=== PATIENT | female | born 1940 | race Caucasian/White ===

== ENCOUNTER 2017-02-20 12:46 | Emergency (ER) | payer MEDICARE, OTHER ==
--- NOTE | 2017-03-14 15:33 | EKG ---
Test Reason : Blood Pressure : / mmHG Vent. Rate : 061 BPM Atrial Rate : 061 BPM P-R Int : 154 ms QRS Dur : 076 ms QT Int : 420 ms P-R-T Axes : 052 012 069 degrees QTc Int : 422 ms Normal sinus rhythm Normal ECG Confirmed by UMER BURROUGHS D.O. ([id number]), film or videotape editor LATHA RIVERA ([id number] on 03/14/2017 3:32:59 PM Referred By: Confirmed By:UMER BURROUGHS D.O.
== END 2017-02-20 14:29 | disposition home or self-care (01) ==
LOC: ERS 12:46
DX: I10 Essential (primary) hypertension (principal); Z86.73 Personal history of transient ischemic attack (TIA), and cerebral infarction without residual deficits; F03.90 Unspecified dementia, unspecified severity, without behavioral disturbance, psychotic disturbance, mood disturbance, and anxiety; I25.10 Atherosclerotic heart disease of native coronary artery without angina pectoris
CPT/HCPCS: 93005

== ENCOUNTER 2018-05-21 14:56 | Emergency (ER) | payer MEDICARE, OTHER ==
[2018-05-21 17:35] LABS: #Basophils 0.1 thou/uL (0.0-0.2); #Eosinphils 0.1 thou/uL (0.0-0.7); #Lymphocytes 1.4 thou/uL (1.20-3.40); #Monocytes 0.7 thou/uL (0.11-0.59); #Neutrophils 6.4 thou/uL (1.40-6.50); %Basophils 0.7 % (0.0-1.0); %Eosinophils 1.2 % (0.0-10.0); %Lymphocytes 16.4 % (21.0-51.0); %Monocytes 8.2 % (0.0-10.0); %Neutrophils 73.6 % (42.0-75.0); Hemoglobin 13.6 g/dL (12.0-16.0); Mean Corpuscular HGB CONC 32.3 g/dL (32.0-36.0); Mean Corpuscular Hemoglobin 32.5 pg (27.0-31.0); Mean Platelet Volume 5.9 fL (7.4-10.4); Platelet Count 324 thou/uL (130-400); RBC Distribution Width 12.7 % (11.5-14.5); Red Blood Cell (RBC) Count 4.19 mill/uL (4.20-5.40); White Blood Cell (WBC) Count 8.8 thou/uL (4.8-10.8)
[2018-05-21 17:56] LABS: ALT (SGPT) 23 U/L (8-55); AST (SGOT) 30 U/L (5-34); Albumin 3.3 g/dL (3.4-4.8); Alkaline Phosphatase 64 U/L (40-150); Anion Gap 13 mmol/L (10-20); BUN (Urea Nitrogen) 23 mg/dL (9.8-20.1); Bilirubin, Total 0.2 mg/dL (0.2-1.2); Calc. Creatinine Clearance 0 mL/min (70-130); Calcium 9.7 mg/dL (7.8-10.44); Carbon Dioxide 25 mmol/L (23-31); Chloride 104 mmol/L (98-107); Estimated GFR-MDRD 67; Glucose 110 mg/dL (83-110); Potassium 4.3 mmol/L (3.5-5.1); Protein, Total 6.3 g/dL (6.0-8.3); Sodium 138 mmol/L (136-145)
== END 2018-05-21 19:43 | disposition home or self-care (01) ==
LOC: ERS 14:56
DX: L89.139 Pressure ulcer of right lower back, unspecified stage (principal); I10 Essential (primary) hypertension; I25.10 Atherosclerotic heart disease of native coronary artery without angina pectoris; Z86.73 Personal history of transient ischemic attack (TIA), and cerebral infarction without residual deficits; Z79.82 Long term (current) use of aspirin; Z79.899 Other long term (current) drug therapy
CPT/HCPCS: 36415; 80053; 85025; 99283

== ENCOUNTER 2020-04-28 12:18 | Inpatient (IN) | payer MEDICARE, OTHER ==
[2020-04-28 12:45] LABS: #Basophils 0.1 thou/uL (0.0-0.2); #Lymphocytes 1.6 thou/uL (1.20-3.40); #Monocytes 0.5 thou/uL (0.11-0.59); #Neutrophils 10.3 thou/uL (1.40-6.50); %Basophils 0.5 % (0.0-1.0); %Eosinophils 0.1 % (0.0-10.0); %Monocytes 4.3 % (0.0-10.0); %Neutrophils 82.1 % (42.0-75.0); Mean Corpuscular HGB CONC 32.3 g/dL (32.0-36.0); Mean Corpuscular Hemoglobin 30.8 pg (27.0-31.0); Mean Corpuscular Volume 95.3 fL (78.0-98.0); Mean Platelet Volume 7.1 fL (7.4-10.4); Platelet Count 254 thou/uL (130-400); RBC Distribution Width 12.9 % (11.5-14.5); Red Blood Cell (RBC) Count 5.52 mill/uL (4.20-5.40); White Blood Cell (WBC) Count 12.6 thou/uL (4.8-10.8)
[2020-04-28] MEDS ORDERED: Cefepime 2 GM VIAL ONE (12:53)
[2020-04-28] MEDS ORDERED: Acetaminophen 650 MG Suppository ONE (12:53)
[2020-04-28] MEDS ORDERED: Vancomycin 1 GM/200 ML BAG ONE (12:53)
[2020-04-28 13:07] LABS: Bacteria/HPF 1+ HPF (None Seen); Bilirubin Negative (Negative); Blood, Urine Trace (Negative); Clarity Clear (Clear); Glucose, Urine (Dipstick) Normal (Negative); Ketone, Urine Negative (Negative); Leukocyte Negative Leu/uL (Negative); Nitrite Negative (Negative); Protein, Urine (Dipstick) 70 mg/dL (Neg-Trace); Specific Gravity, Urine 1.023 (1.002-1.036); Squamous Epithelial 0-3 HPF (0-3); Urobilinogen Normal mg/dL (Less than 2); pH, Urine 5.5 (5.0-9.0)
[2020-04-28 13:08] LABS: ALT (SGPT) 35 U/L (8-55); AST (SGOT) 61 U/L (5-34); Albumin 3.4 g/dL (3.4-4.8); Alkaline Phosphatase 107 U/L (40-110); Anion Gap 19 mmol/L (10-20); BUN (Urea Nitrogen) 26 mg/dL (9.8-20.1); Bilirubin, Total 0.7 mg/dL (0.2-1.2); Calc. Creatinine Clearance 0 mL/min (70-130); Calcium 9.6 mg/dL (7.8-10.44); Carbon Dioxide 22 mmol/L (23-31); Chloride 108 mmol/L (98-107); Globulin 4.4 g/dL (2.4-3.5); Glucose 147 mg/dL (83-110); Potassium 3.1 mmol/L (3.5-5.1); Protein, Total 7.8 g/dL (5.8-8.1); Sodium 146 mmol/L (136-145)
[2020-04-28 13:16] LABS: WBC/HPF 0-3 HPF (0-3)
[2020-04-28 13:37] LABS: CK (CPK) 142 U/L (29-168); Lipase 16 U/L (8-78)
[2020-04-28 13:47] LABS: SARS-CoV-2 NAA Rapid Test DETECTED (NotDetected)
[2020-04-28 14:04] LABS: CKMB 0.7 ng/mL (0-6.6)
[2020-04-28] MEDS ORDERED: Aspirin 300 MG Suppository ONE ×2 (14:10→14:48)
[2020-04-28] MEDS ORDERED: Dexamethasone 10 MG/ML VIAL ONE (14:10)
[2020-04-28 15:47] LABS: Lactic Acid 0.4 mmol/L (0.5-2.2)
[2020-04-28] MEDS ORDERED: Acetaminophen 325 MG TAB PO PRN (16:34)
[2020-04-28] MEDS ORDERED: Bisacodyl 10 MG SUPP PR PRN (16:34)
[2020-04-28] MEDS ORDERED: Ondansetron PF 4 MG/2 ML Vial IVP PRN (16:34)
[2020-04-28] MEDS ORDERED: Sodium Chloride 0.9% 1,000 ML IV SCH (16:45)
[2020-04-28] MEDS ORDERED: Bacteriostatic Water 30 ML VIAL FS PRN (17:30)
[2020-04-28 17:46] LABS: Hemoglobin 14.7 g/dL (12.0-16.0); Mean Corpuscular HGB CONC 32.7 g/dL (32.0-36.0); Mean Corpuscular Hemoglobin 31.3 pg (27.0-31.0); Mean Corpuscular Volume 95.7 fL (78.0-98.0); Mean Platelet Volume 7.2 fL (7.4-10.4); Platelet Count 200 thou/uL (130-400); RBC Distribution Width 12.9 % (11.5-14.5); Red Blood Cell (RBC) Count 4.69 mill/uL (4.20-5.40); White Blood Cell (WBC) Count 10.2 thou/uL (4.8-10.8)
[2020-04-28 17:56] LABS: ALT (SGPT) 33 U/L (8-55); AST (SGOT) 61 U/L (5-34); Albumin 3.1 g/dL (3.4-4.8); Alkaline Phosphatase 94 U/L (40-110); Anion Gap 15 mmol/L (10-20); BUN (Urea Nitrogen) 26 mg/dL (9.8-20.1); Bilirubin, Total 0.5 mg/dL (0.2-1.2); Calc. Creatinine Clearance 0 mL/min (70-130); Calcium 8.5 mg/dL (7.8-10.44); Carbon Dioxide 22 mmol/L (23-31); Chloride 110 mmol/L (98-107); Globulin 3.4 g/dL (2.4-3.5); Glucose 202 mg/dL (83-110); Protein, Total 6.5 g/dL (5.8-8.1); Sodium 144 mmol/L (136-145)
[2020-04-28] MEDS ORDERED: methylPREDNISolone Sod Succ/PF 125 MG/2 ML VIAL IVP SCH (18:00)
[2020-04-28 18:07] LABS: Band 7 % (5-11); Lymphocytes 8 % (21-51); MDiff Complete? YES; Monocytes 4 % (0-10); Neutrophil 81 % (42-75); Platelet Morphology Comment Appears Adequate; RBC Morphology Normal
[2020-04-28 20:36] LABS: Lactic Acid 2.4 mmol/L (0.5-2.2)
[2020-04-28] MEDS ORDERED: methylPREDNISolone Sod Succ 40 MG VIAL IVP SCH (21:00)
[2020-04-28] MEDS ORDERED: Cefepime 2 GM in Sodium Chloride 0.9% 100 ML IVPB SCH (22:00)
[2020-04-28 22:24] LABS: Critical Call Chem Troponin I RESULT DECREASING; Troponin I 0.612 ng/mL (< 0.028)
[2020-04-28 23:13] VITALS: BMI 17.0
[2020-04-29] MEDS ORDERED: Vancomycin HCl 500 GM in Sodium Chloride 0.9% 250 ML 300 ML IVPB SCH
[2020-04-29] MEDS ORDERED: Mineral Oil ENEMA PR SCH (01:00)
[2020-04-29] MEDS: methylPREDNISolone Sod Succ/PF 125 MG/2 ML VIAL IVP SCH ×2 (01:23→12:10)
[2020-04-29] MEDS: Famotidine/PF 20 mg/2ml Vial SLOW IVP SCH ×2 (01:24→19:56)
[2020-04-29] MEDS: 1/2 NS w/KCL 20 mEq 1,000 ML IV SCH ×3 (01:24→15:25)
[2020-04-29] MEDS: Enoxaparin Sodium 40 MG/0.4 ML SYRINGE SC SCH (08:44)
[2020-04-29] MEDS ORDERED: Enoxaparin Sodium 40 MG/0.4 ML SYRINGE SC SCH (09:00)
[2020-04-29] MEDS: Cefepime 2 GM in Sodium Chloride 0.9% 100 ML IVPB SCH (12:09)
[2020-04-29] MEDS ORDERED: Vancomycin HCl 500 MG in Sodium Chloride 0.9% 100 ML IVPB SCH (14:00)
[2020-04-29 14:30] LABS: #Lymphocytes 1.5 thou/uL (1.20-3.40); #Monocytes 0.5 thou/uL (0.11-0.59); #Neutrophils 9.8 thou/uL (1.40-6.50); %Eosinophils 0.1 % (0.0-10.0); %Lymphocytes 12.9 % (21.0-51.0); %Monocytes 4.4 % (0.0-10.0); %Neutrophils 82.6 % (42.0-75.0); Hemoglobin 13.6 g/dL (12.0-16.0); Mean Corpuscular HGB CONC 32.6 g/dL (32.0-36.0); Mean Corpuscular Hemoglobin 31.1 pg (27.0-31.0); Mean Corpuscular Volume 95.5 fL (78.0-98.0); Platelet Count 229 thou/uL (130-400); RBC Distribution Width 12.8 % (11.5-14.5); Red Blood Cell (RBC) Count 4.36 mill/uL (4.20-5.40); White Blood Cell (WBC) Count 11.9 thou/uL (4.8-10.8)
[2020-04-29 14:47] LABS: Vancomycin, Random 11.5 ug/mL (See Comment)
[2020-04-29 14:50] LABS: Anion Gap 13 mmol/L (10-20); BUN (Urea Nitrogen) 32 mg/dL (9.8-20.1); Calc. Creatinine Clearance 30 mL/min (70-130); Calcium 8.4 mg/dL (7.8-10.44); Carbon Dioxide 23 mmol/L (23-31); Chloride 111 mmol/L (98-107); Glucose 133 mg/dL (83-110); Potassium 3.7 mmol/L (3.5-5.1); Sodium 143 mmol/L (136-145)
[2020-04-29] MEDS: Vancomycin HCl 500 MG in Sodium Chloride 0.9% 100 ML IVPB SCH (15:17)
[2020-04-29] MEDS: Trospium 20 MG TAB PO SCH (19:56)
[2020-04-29] MEDS: DULoxetine 30 MG CAP PO SCH (19:56)
[2020-04-30] MEDS: 1/2 NS w/KCL 20 mEq 1,000 ML IV SCH ×3 (02:03→18:34)
[2020-04-30] MEDS: Levothyroxine Sodium 50 MCG TAB PO SCH (05:30)
[2020-04-30 05:43] LABS: Band 26 % (5-11); Hemoglobin 13.1 g/dL (12.0-16.0); Lymphocytes 1 % (21-51); MDiff Complete? YES; Mean Corpuscular HGB CONC 33.3 g/dL (32.0-36.0); Mean Corpuscular Hemoglobin 32.2 pg (27.0-31.0); Mean Corpuscular Volume 96.8 fL (78.0-98.0); Mean Platelet Volume 7.4 fL (7.4-10.4); Monocytes 6 % (0-10); Neutrophil 67 % (42-75); Platelet Count 190 thou/uL (130-400); Platelet Morphology Comment Appears Adequate; RBC Distribution Width 12.8 % (11.5-14.5); Red Blood Cell (RBC) Count 4.06 mill/uL (4.20-5.40); White Blood Cell (WBC) Count 21.3 thou/uL (4.8-10.8)
[2020-04-30 05:56] LABS: Anion Gap 14 mmol/L (10-20); BUN (Urea Nitrogen) 36 mg/dL (9.8-20.1); Calc. Creatinine Clearance 34 mL/min (70-130); Calcium 7.9 mg/dL (7.8-10.44); Carbon Dioxide 21 mmol/L (23-31); Chloride 112 mmol/L (98-107); Glucose 117 mg/dL (83-110); Potassium 3.5 mmol/L (3.5-5.1); Sodium 143 mmol/L (136-145)
[2020-04-30] MEDS: Aspirin Chewable 81 MG TAB PO SCH (09:12)
[2020-04-30] MEDS: Enoxaparin Sodium 40 MG/0.4 ML SYRINGE SC SCH (09:12)
[2020-04-30] MEDS: Dexamethasone 4 MG TAB PO SCH (09:12)
[2020-04-30] MEDS: Cholecalciferol 1,000 UNITS (25 MCG) TAB PO SCH (09:13)
[2020-04-30] MEDS: Trospium 20 MG TAB PO SCH ×2 (09:13→22:10)
[2020-04-30] MEDS: Zinc Sulfate 220 MG CAP PO SCH (09:13)
[2020-04-30] MEDS: Ascorbic Acid 500 mg Chewable Tablet PO SCH (13:24)
[2020-04-30] MEDS: Rivastigmine 4.6mg/24 Hour PATCH TOP SCH (13:43)
[2020-04-30] MEDS: Cefepime 2 GM in Sodium Chloride 0.9% 100 ML IVPB SCH (14:00)
[2020-04-30] MEDS: Vancomycin HCl 500 MG in Sodium Chloride 0.9% 100 ML IVPB SCH (18:32)
[2020-04-30] MEDS ORDERED: hydrALAZINE 20 MG/ML VIAL SLOW IVP PRN (21:06)
[2020-04-30] MEDS: DULoxetine 30 MG CAP PO SCH (22:09)
[2020-04-30] MEDS: Famotidine/PF 20 mg/2ml Vial SLOW IVP SCH (22:15)
[2020-05-01 05:19] LABS: #Lymphocytes 0.7 thou/uL (1.20-3.40); #Monocytes 0.5 thou/uL (0.11-0.59); #Neutrophils 9.5 thou/uL (1.40-6.50); %Basophils 0.1 % (0.0-1.0); %Eosinophils 0.2 % (0.0-10.0); %Lymphocytes 6.4 % (21.0-51.0); %Monocytes 5.1 % (0.0-10.0); %Neutrophils 88.3 % (42.0-75.0); Hemoglobin 11.7 g/dL (12.0-16.0); Mean Corpuscular HGB CONC 33.4 g/dL (32.0-36.0); Mean Corpuscular Hemoglobin 31.7 pg (27.0-31.0); Mean Platelet Volume 7.7 fL (7.4-10.4); Platelet Count 216 thou/uL (130-400); RBC Distribution Width 12.7 % (11.5-14.5); Red Blood Cell (RBC) Count 3.69 mill/uL (4.20-5.40); White Blood Cell (WBC) Count 10.8 thou/uL (4.8-10.8)
[2020-05-01] MEDS: 1/2 NS w/KCL 20 mEq 1,000 ML IV SCH (05:29)
[2020-05-01 05:30] LABS: Anion Gap 11 mmol/L (10-20); BUN (Urea Nitrogen) 30 mg/dL (9.8-20.1); Calc. Creatinine Clearance 39 mL/min (70-130); Calcium 7.8 mg/dL (7.8-10.44); Carbon Dioxide 20 mmol/L (23-31); Chloride 112 mmol/L (98-107); Glucose 97 mg/dL (83-110); Sodium 139 mmol/L (136-145)
[2020-05-01] MEDS: Levothyroxine Sodium 50 MCG TAB PO SCH (06:22)
[2020-05-01] MEDS: Enoxaparin Sodium 40 MG/0.4 ML SYRINGE SC SCH (08:12)
[2020-05-01] MEDS: Dexamethasone 4 MG TAB PO SCH (08:15)
[2020-05-01] MEDS: Ascorbic Acid 500 mg Chewable Tablet PO SCH (08:16)
[2020-05-01] MEDS: Cholecalciferol 1,000 UNITS (25 MCG) TAB PO SCH (08:16)
[2020-05-01] MEDS: Aspirin Chewable 81 MG TAB PO SCH (08:16)
[2020-05-01] MEDS: Trospium 20 MG TAB PO SCH ×2 (08:16→21:36)
[2020-05-01] MEDS: Zinc Sulfate 220 MG CAP PO SCH (08:17)
[2020-05-01] MEDS: Labetalol HCl 100 MG/20 ML VIAL SLOW IVP PRN ×2 (10:04→22:05)
[2020-05-01] MEDS: Rivastigmine 4.6mg/24 Hour PATCH TOP SCH (14:01)
[2020-05-01] MEDS: Cefepime 2 GM in Sodium Chloride 0.9% 100 ML IVPB SCH (14:02)
[2020-05-01] MEDS: Vancomycin HCl 500 MG in Sodium Chloride 0.9% 100 ML IVPB SCH (14:47)
[2020-05-01 15:01] LABS: Vancomycin, Trough 12.3 ug/mL
[2020-05-01] MEDS: Famotidine/PF 20 mg/2ml Vial SLOW IVP SCH (20:28)
[2020-05-01] MEDS: DULoxetine 30 MG CAP PO SCH (21:36)
[2020-05-02] MEDS: Levothyroxine Sodium 50 MCG TAB PO SCH (06:09)
[2020-05-02] MEDS: Aspirin Chewable 81 MG TAB PO SCH (07:38)
[2020-05-02] MEDS: Dexamethasone 4 MG TAB PO SCH (07:38)
[2020-05-02] MEDS: Ascorbic Acid 500 mg Chewable Tablet PO SCH (07:38)
[2020-05-02] MEDS: Zinc Sulfate 220 MG CAP PO SCH (07:39)
[2020-05-02] MEDS: Trospium 20 MG TAB PO SCH ×2 (07:39→21:44)
[2020-05-02] MEDS: Cholecalciferol 1,000 UNITS (25 MCG) TAB PO SCH (07:39)
[2020-05-02] MEDS: Rivastigmine 4.6mg/24 Hour PATCH TOP SCH (09:19)
[2020-05-02] MEDS: Enoxaparin Sodium 40 MG/0.4 ML SYRINGE SC SCH (09:19)
[2020-05-02] MEDS: Labetalol HCl 100 MG/20 ML VIAL SLOW IVP PRN ×2 (09:29→21:15)
[2020-05-02] MEDS: Cefepime 2 GM in Sodium Chloride 0.9% 100 ML IVPB SCH (12:11)
[2020-05-02] MEDS ORDERED: Vancomycin HCl 750 MG in Sodium Chloride 0.9% 250 ML 250 ML IVPB SCH (15:00)
[2020-05-02] MEDS: Dextrose 5 % And 0.9 % NaCl 1,000 ML IV SCH (19:25)
[2020-05-02] MEDS: Famotidine/PF 20 mg/2ml Vial SLOW IVP SCH (21:14)
[2020-05-02] MEDS: DULoxetine 30 MG CAP PO SCH (21:43)
[2020-05-03 05:22] LABS: Anion Gap 21 mmol/L (10-20); BUN (Urea Nitrogen) 27 mg/dL (9.8-20.1); Calc. Creatinine Clearance 32 mL/min (70-130); Calcium 8.4 mg/dL (7.8-10.44); Carbon Dioxide 10 mmol/L (23-31); Chloride 117 mmol/L (98-107); Glucose 134 mg/dL (83-110); Potassium 4.2 mmol/L (3.5-5.1); Sodium 144 mmol/L (136-145)
[2020-05-03 05:30] LABS: Hemoglobin 13.6 g/dL (12.0-16.0); Lymphocytes 9 % (21-51); MDiff Complete? YES; Mean Corpuscular HGB CONC 33.1 g/dL (32.0-36.0); Mean Corpuscular Hemoglobin 31.1 pg (27.0-31.0); Mean Corpuscular Volume 93.9 fL (78.0-98.0); Mean Platelet Volume 7.5 fL (7.4-10.4); Monocytes 8 % (0-10); Neutrophil 83 % (42-75); Platelet Count 311 thou/uL (130-400); Platelet Morphology Comment Appears Adequate; RBC Distribution Width 12.8 % (11.5-14.5); RBC Morphology Normal; Red Blood Cell (RBC) Count 4.36 mill/uL (4.20-5.40); White Blood Cell (WBC) Count 13.2 thou/uL (4.8-10.8)
[2020-05-03] MEDS: Dextrose 5 % And 0.9 % NaCl 1,000 ML IV SCH ×2 (06:41→21:42)
[2020-05-03] MEDS: Enoxaparin Sodium 40 MG/0.4 ML SYRINGE SC SCH (07:51)
[2020-05-03] MEDS: Rivastigmine 4.6mg/24 Hour PATCH TOP SCH (07:52)
[2020-05-03] MEDS: Acetaminophen 650 MG Suppository PR PRN ×2 (07:52→12:24)
[2020-05-03] MEDS: Labetalol HCl 100 MG/20 ML VIAL SLOW IVP PRN (08:00)
[2020-05-03] MEDS: Cholecalciferol 1,000 UNITS (25 MCG) TAB PO SCH (08:39)
[2020-05-03] MEDS: Levothyroxine Sodium 50 MCG TAB PO SCH (08:39)
[2020-05-03] MEDS: Dexamethasone 4 MG TAB PO SCH (08:39)
[2020-05-03] MEDS: Aspirin Chewable 81 MG TAB PO SCH (08:39)
[2020-05-03] MEDS: Ascorbic Acid 500 mg Chewable Tablet PO SCH (08:39)
[2020-05-03] MEDS: Zinc Sulfate 220 MG CAP PO SCH (08:40)
[2020-05-03] MEDS: Trospium 20 MG TAB PO SCH (08:40)
[2020-05-03] MEDS: Cefepime 2 GM in Sodium Chloride 0.9% 100 ML IVPB SCH (12:07)
[2020-05-03] MEDS ORDERED: Ketorolac Tromethamine 30 MG/ML VIAL IVP SCH (14:15)
[2020-05-03] MEDS: Bupropion 150 MG XL TAB PO SCH ×2 (15:32→15:33)
[2020-05-03] MEDS ORDERED: Dexamethasone 4 mg/ml Vial SLOW IVP SCH (21:00)
[2020-05-03] MEDS: Famotidine/PF 20 mg/2ml Vial SLOW IVP SCH (21:43)
[2020-05-03] MEDS: Ketorolac Tromethamine 30 MG/ML VIAL IVP SCH (21:43)
[2020-05-04] MEDS: Labetalol HCl 100 MG/20 ML VIAL SLOW IVP PRN ×2 (02:15→08:16)
[2020-05-04] MEDS: Ketorolac Tromethamine 30 MG/ML VIAL IVP SCH ×3 (02:22→17:03)
[2020-05-04] MEDS: DULoxetine 30 MG CAP PO SCH (02:55)
[2020-05-04] MEDS: Trospium 20 MG TAB PO SCH ×2 (02:56→07:53)
[2020-05-04] MEDS: Levothyroxine Sodium 50 MCG TAB PO SCH (06:32)
[2020-05-04] MEDS: Aspirin Chewable 81 MG TAB PO SCH (07:52)
[2020-05-04] MEDS: Cholecalciferol 1,000 UNITS (25 MCG) TAB PO SCH (07:52)
[2020-05-04] MEDS: Ascorbic Acid 500 mg Chewable Tablet PO SCH (07:52)
[2020-05-04] MEDS: Zinc Sulfate 220 MG CAP PO SCH (07:53)
[2020-05-04] MEDS: Rivastigmine 4.6mg/24 Hour PATCH TOP SCH (07:55)
[2020-05-04] MEDS: Enoxaparin Sodium 40 MG/0.4 ML SYRINGE SC SCH (07:55)
[2020-05-04] MEDS ORDERED: Dexamethasone 4 mg/ml Vial SLOW IVP SCH (09:00)
[2020-05-04] MEDS: Dextrose 5 % And 0.9 % NaCl 1,000 ML IV SCH (10:14)
[2020-05-04] MEDS ORDERED: Furosemide 20 MG/2 ML VIAL SLOW IVP SCH (12:15)
[2020-05-04] MEDS: Cefepime 2 GM in Sodium Chloride 0.9% 100 ML IVPB SCH (12:24)
[2020-05-04 16:24] VITALS: BP 120/61; TEMP 99.3
== END 2020-05-04 19:50 | disposition hospice, home (50) | DRG 871 ==
LOC: ERS 12:18 → ERHOLD 16:39 → 2SW 21:07
PROVIDERS: ADMIT Internal Medicine; ATTEND Family Medicine
PROC: 8E0ZXY6 Isolation (ICD-10-PCS; principal; 2020-04-28)
DX: A41.89 Other specified sepsis (principal); G93.41 Metabolic encephalopathy; U07.1 COVID-19; J12.82 Pneumonia due to coronavirus disease 2019; I21.A1 Myocardial infarction type 2; J96.01 Acute respiratory failure with hypoxia; R64 Cachexia; N39.0 Urinary tract infection, site not specified; E87.0 Hyperosmolality and hypernatremia; N17.9 Acute kidney failure, unspecified; Z68.1 Body mass index [BMI] 19.9 or less, adult; I69.354 Hemiplegia and hemiparesis following cerebral infarction affecting left non-dominant side; N18.9 Chronic kidney disease, unspecified; Z66 Do not resuscitate; F03.90 Unspecified dementia, unspecified severity, without behavioral disturbance, psychotic disturbance, mood disturbance, and anxiety; I25.10 Atherosclerotic heart disease of native coronary artery without angina pectoris; K21.9 Gastro-esophageal reflux disease without esophagitis; E03.9 Hypothyroidism, unspecified; E78.5 Hyperlipidemia, unspecified; K59.04 Chronic idiopathic constipation; F32.9 Major depressive disorder, single episode, unspecified; I12.9 Hypertensive chronic kidney disease with stage 1 through stage 4 chronic kidney disease, or unspecified chronic kidney disease; R13.10 Dysphagia, unspecified; Z90.49 Acquired absence of other specified parts of digestive tract; Z85.3 Personal history of malignant neoplasm of breast; Z90.11 Acquired absence of right breast and nipple; I25.2 Old myocardial infarction; Z95.5 Presence of coronary angioplasty implant and graft; Z79.82 Long term (current) use of aspirin; Z79.899 Other long term (current) drug therapy; E11.9 Type 2 diabetes mellitus without complications; R62.7 Adult failure to thrive
CPT/HCPCS: 0240U; 36415; 51702; 70450; 71045; 71275; 74177; 80048; 80053; 80202; 81001; 81003; 81015; 82550; 82553; 82728; 83605; 83690; 83880; 84145; 84484; 85025; 85379; 87040; 87086; 93005; 93010; 96365; 96367; 96375; J0360; J0692; J1100; J1650; J1885; J1940; J2930; J3370; J3480; J3490; J8540; S0028